=== PATIENT | female | born 1970 | race Two or more races ===

== ENCOUNTER 2025-05-02 14:27 | Inpatient (IN) | payer MEDICAID, OTHER ==
[~2025-05-02] VITALS: Ht 162.6 cm; Wt 96.7 kg
--- NOTE | 2025-05-02 15:05 | ED.PDOC ---
History of Present Illness HPI Comments 55-year-old female who is Bengali-speaking said the ER with prior history of gastritis: Surgical history of a : Prior procedure of an endoscopy and a chief complaint of abdominal pain. You reports having had epigastric pain for which has a 7/10 on the pain scale for one week associated with nausea and to emesis episodes last night. Denies any other symptoms at this time. Denies chills, fever, /D, SOB, CP. No other associated symptoms, modifiers, recent injuries or sick contacts present at this time. 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 Family History Family History: Reviewed,noncontributory to illness, Unknown Social History Smoker: Non-Smoker Alcohol: Denies ETOH Use Drugs: Denies Drug Use Lives In: Home Constitutional: denies: chills, diaphoresis, fatigue, fever, malaise, sweats, weakness, others EENTM: denies: blurred vision, double vision, ear bleeding, ear discharge, ear drainage, ear pain, ear ringing, eye pain, eye redness, hearing loss, mouth pain, mouth swelling, nasal discharge, nose bleeding, nose congestion, nose pain, photophobia, tearing, throat pain, throat swelling, voice changes, others Respiratory: denies: cough, hemoptysis, orthopnea, SOB at rest, shortness of breath, SOB with excertion, stridor, wheezing, others Cardiovascular: denies: chest pain, dizzy spells, diaphoresis, Dyspnea on exertion, edema, irregular heart beat, left arm pain, lightheadedness, palpitations, PND, syncope, others Gastrointestinal: reports: abdominal pain (Epigastric pain), nausea, vomiting; denies: abdomen distended, blood streaked bowels, constipated, diarrhea, dysphagia, difficulty swallowing, hematemesis, melena, poor appetite, poor fluid intake, rectal bleeding, rectal pain, others Genitourinary: denies: abnormal vagina bleeding, burning, dyspareunia, dysuria, flank pain, frequency, hematuria, incontinence, pain, , vagina discharge, urgency, others Neurological: denies: dizziness, fainting, headache, left sided numbness, left sided weakness, numbness, paresthesia, pre-existing deficit, right sided numbness, right sided weakness, seizure, speech problems, tingling, tremors, weakness, others Musculoskeletal: denies: back pain, gout, joint pain, joint swelling, muscle pain, muscle stiffness, neck pain, others Integumetry: denies: bruises, change in color, change in hair/nails, dryness, laceration, lesions, lumps, rash, wounds, others Allergic/Immunocompromised: denies: Difficulty Healing, Frequent Infections, Hives, Itching, others Hematologic/Lymphatic: denies: anemia, blood clots, easy bleeding, easy bruising, swollen glands, others Endocrine: denies: excessive hunger, excessive sweating, excessive thirst, excessive urination, flushing, intolerance to cold, intolerance to heat, unexplained weight gain, unexplained weight loss, others Psychiatric: denies: anxiety, bipolar disorder, depression, hopeless, panic disorder, schizophrenia, sleepless, suicidal, others All Other Systems: Reviewed and Negative Physical Exam Exam Comments Epigastric pain General Appearance: No Apparent Distress, Normal HEENT: Normal ENT Inspection, Pharynx Normal, TMs Normal Neck: Full Range of Motion, Non-Tender, Normal, Normal Inspection Respiratory: Chest Non-Tender, Lungs Clear, No Accessory Muscle Use, No Respiratory Distress, Normal Breath Sounds Cardiovascular: No Edema, No JVD, No Murmur, No Gallop, Normal Peripheral Pulses, Regular Rate/Rhythm Breast Exam: Deferred Gastrointestinal: No Organomegaly, Non Tender, No Pulsatile Mass, Normal Bowel Sounds, Soft Genitalia: Deferred Pelvic: Deferred Rectal: Deferred Extremities: No calf tenderness, Normal capillary refill, Normal inspection, Normal range of motion, Non-tender, No pedal edema Musculoskeletal : Apperance: Normal Neurologic: Alert, foster parent II-XII nml as Tested, No Motor Deficits, Normal Affect, Normal Mood, No Sensory Deficits Cerebellar Function: Normal Reflexes: Normal Skin: Dry, Normal Color, Warm Lymphatic: No Adenopathy Was a procedure done? Was a procedure done?: No Differential Dx Considerations may include: Electrolyte abnormality, infectious etiology, appendicitis, gastroenteritis, gastritis, cholecystitis, diverticulitis, fibroids, ureteral colic X-Ray, Labs, Meds, VS Vital Signs Date Time Temp Pulse Resp B/P (MAP) Pulse Ox O2 Delivery O2 Flow Rate FiO2 05/02/25 17:14 74 20 132/67 05/02/25 16:43 55 18 120/70 05/02/25 16:31 55 18 95 Room Air 05/02/25 16:22 98.0 55 18 120/70 (87) 95 98.0 05/02/25 15:17 05/02/25 15:05 103 05/02/25 14:38 60 05/02/25 14:29 98.8 67 20 127/75 96 98.8 Lab Test 05/02/25 15:10 05/02/25 14:00 Range/Units White Blood Count 5.8 4.4-10.8 10^3/uL Red Blood Count 4.48 4.0-5.20 10^6/uL Hemoglobin 13.2 12.2-16.2 g/dL Hematocrit 39.4 36.0-46.0 % Mean Corpuscular Volume 88.0 80.0-100.0 fL Mean Corpuscular Hemoglobin 29.5 28.0-32.0 pg Mean Corpuscular Hemoglobin Concent 33.5 32.0-36.0 g/dL Red Cell Distribution Width 12.8 11.8-14.3 % Platelet Count 196 140-450 10^3/uL Mean Platelet Volume 10.2 6.9-10.8 fL Neutrophils (%) (Auto) 56.2 37.0-80.0 % Lymphocytes (%) (Auto) 34.9 10.0-50.0 % Monocytes (%) (Auto) 6.1 0.0-12.0 % Eosinophils (%) (Auto) 2.1 0.0-7.0 % Basophils (%) (Auto) 0.7 0.0-2.0 % Neutrophils # (Auto) 3.3 1.6-8.6 10 ^3/uL Lymphocytes # (Auto) 2.0 0.4-5.4 10 ^3/uL Monocytes # (Auto) 0.4 0-1.3 10 ^3/uL Eosinophils # (Auto) 0.1 0-0.8 10 ^3/uL Basophils # (Auto) 0 0-0.2 10 ^3/uL Nucleated Red Blood Cells 0.1 % Sodium Level 142 136-145 mmol/L Potassium Level 4.2 3.5-5.1 mmol/L Chloride Level 105 98-107 mmol/L Carbon Dioxide Level 28 20-31 mmol/L Anion Gap 9 5-15 Blood Urea Nitrogen 11 9-23 mg/dL Creatinine 0.67 0.550-1.02 mg/dL Glomerular Filtration Rate Calc 103 >90 mL/min BUN/Creatinine Ratio 16.4 10.0-20.0 Serum Glucose 111 H 74-106 mg/dL Calcium Level 9.3 8.7-10.4 mg/dL Total Bilirubin 0.4 0.2-1.0 mg/dL Aspartate Amino Transferase (AST) 12 L 13-40 U/L Alanine Aminotransferase (ALT) 13 7-40 U/L Alkaline Phosphatase 79 46-116 U/L Total Protein 7.3 5.7-8.2 g/dL Albumin 4.5 3.2-4.8 g/dL Lipase 33 12-53 U/L Urine Color Light-yellow Yellow Urine Clarity Clear Clear Urine pH 5.0 5.0-9.0 Urine Specific [place] 1.011 1.001-1.035 Urine Protein Negative Negative Urine Ketones Negative Negative Urine Blood Negative Negative /uL Urine Nitrite Negative Negative Urine Bilirubin Negative Negative Urine Urobilinogen Normal Negative mg/dL Urine Leukocyte Esterase Negative Negative /uL Urine RBC 1 0 - 4 /hpf Urine Microscopic WBC < 1 0-5 /HPF Urine Squamous Epithelial Cells Few <5 /hpf Urine Bacteria None seen None Seen /hpf Urine Glucose Normal Normal mg/dL Current Medications Medications (Trade) Dose Ordered Sig/Storm Route Start Time Stop Time Status Last Admin Sodium Chloride 1,000 ml @ 1,000 mls/hr Q1H ONCE IV 05/02/25 15:30 05/02/25 16:29 DC 05/02/25 16:14 Morphine Sulfate 4 mg ONCE ONCE IV 05/02/25 15:30 05/02/25 15:34 DC 05/02/25 16:43 Ondansetron HCl (Zofran) 4 mg ONCE ONCE IV 05/02/25 15:30 05/02/25 15:34 DC 05/02/25 16:43 Pantoprazole Sodium (Protonix) 40 mg ONCE ONCE IV 05/02/25 15:30 05/02/25 15:34 DC 05/02/25 16:42 Time of 1ST Reevaluation: 15:40 Reevaluation 1ST: Unchanged Patient Education/Counseling: Diagnosis, Treatment, Prognosis Family Education/Counseling: No Family Present SEPSIS Sepsis Screen Date sepsis recognized/suspect: May 02, 2025 Time Sepsis recognized/suspect: 1431 Recent Procedure: No On Antibiotic Therapy: No Respiratory Rate >20: No Heart Rate >90: No Temp<36 C (96.8 F) or >38.3 C: No SBP <90 or MAP <65 mmHG: No New Acute Mental Status Change: No Is the patient on CPAP, BIPAP,: No Physician Orders Electrocardigram (05/02/25 14:42) Ct Ab Pel With Iv Con Only (05/02/25 15:30) Vital Signs Date Time Temp Pulse Resp B/P (MAP) Pulse Ox O2 Delivery O2 Flow Rate FiO2 05/02/25 17:14 74 20 132/67 05/02/25 16:43 55 18 120/70 05/02/25 16:31 55 18 95 Room Air 05/02/25 16:22 98.0 55 18 120/70 (87) 95 98.0 05/02/25 15:17 05/02/25 15:05 103 05/02/25 14:38 60 05/02/25 14:29 98.8 67 20 127/75 96 98.8 Laboratory Tests Test 05/02/25 15:10 White Blood Count 5.8 10^3/uL (4.4-10.8) Medications Medications Dose Ordered Sig/Storm Route Start Time Stop Time Status Last Admin Dose Admin Morphine Sulfate 4 mg ONCE ONCE IV 05/02/25 15:30 05/02/25 15:34 DC 05/02/25 16:43 Ondansetron HCl 4 mg ONCE ONCE IV 05/02/25 15:30 05/02/25 15:34 DC 05/02/25 16:43 Pantoprazole Sodium 40 mg ONCE ONCE IV 05/02/25 15:30 05/02/25 15:34 DC 05/02/25 16:42 Sodium Chloride 1,000 ml @ 1,000 mls/hr Q1H ONCE IV 05/02/25 15:30 05/02/25 16:29 DC 05/02/25 16:14 Departure 1 Departure Time of Disposition: 17:34 (Patient presented with abdominal pain that was concerning for possible appendicits, gastritis, cholecystitis, colitis, g astroenteritis, sbo, or orther possible surgical emergency. Data: 1. I ordered and reviewed the result of at least 3 labs including a CBC, BMP, and Urinalysis. 2. I independently interpreted the following tests: CT Abdomen and Pelvis is concerning for fibroids.Risk:This patient has a high risk of morbidity due to further diagnostic testing or treatment and may suffer from an acute abdominal process disorder. Workup reveals intractable abdominal pain and fibroids and patient should be admitted for further workup. and possible expert consultation. ) Impression: Primary Impression: Intractable abdominal pain Additional Impressions: Fibroids Nausea and vomiting Disposition: ADMITTED INPATIENT Admit to: Med Surg Condition: Guarded Critical Care Note Critical Care Time?: Yes Critical care comment: Intractable abdominal pain Authorized and Performed by: Kassandra Dyer MD Total critical care time: Approximately 39 minutes Due to a high probability of clinically significant, life threatening deterioration, the patient required my highest level of preparedness to intervene emergently and I personally spent this critical care time directly and personally managing the patient. This critical care time included obtaining a history; examining the patient; pulse oximetry; ordering and review of studies; arranging urgent treatment with development of a management plan; evaluation of patient's response to treatment; frequent reassessment; and, discussions with other providers. This critical care time was performed to assess and manage the high probability of imminent, life-threatening deterioration that could result in multi-organ failure. It was exclusive of separately billable procedures and treating other patients and teaching time. Please see my other sections and the rest of the note for further information on patient assessment and treatment. Stability Stability form required: No I personally scribed for KASSANDRA DYER MD ([email or web address]) on 05/02/25 at 15:05. Electronically submitted by Chidi Swartz ([email or web address]). I personally scribed for KASSANDRA DYER MD ([email or web address]) on 05/02/25 at 15:17. Electronically submitted by Chidi Swartz ([email or web address]). KASSANDRA DYER MD May 02, 2025 15:05
[2025-05-02 15:22] LABS: Hematocrit 39.4 % (36.0-46.0); Hemoglobin 13.2 g/dL (12.2-16.2); Mean Corpuscular Hemoglobin 29.5 pg (28.0-32.0); Mean Corpuscular Volume 88.0 fL (80.0-100.0); Nucleated Red Blood Cells % 0.1 %
[2025-05-02 15:35] LABS: Alanine Aminotransferase 13 U/L (7-40); Albumin 4.5 g/dL (3.2-4.8); Alkaline Phosphatase 79 U/L (46-116); Anion Gap 9 (5-15); BUN/Creatinine Ratio 16.4 (10.0-20.0); Blood Urea Nitrogen 11 mg/dL (9-23); Calcium 9.3 mg/dL (8.7-10.4); Carbon Dioxide 28 mmol/L (20-31); Chloride 105 mmol/L (98-107); Lipase 33 U/L (12-53); Potassium 4.2 mmol/L (3.5-5.1); Sodium 142 mmol/L (136-145); Total Protein 7.3 g/dL (5.7-8.2)
[2025-05-02 15:36] LABS: Bilirubin, Total 0.4 mg/dL (0.2-1.0)
[2025-05-02 15:43] LABS: Glucose 111 mg/dL (74-106)
[2025-05-02] MEDS: SODIUM CHLORIDE 0.9% 1,000 ML IV ONE (16:14)
[2025-05-02 16:35] LABS: Urine Protein, UAD Negative (Negative)
[2025-05-02] MEDS: IOHEXOL 300 MG/ML 100ML BOTTLE IJ ONE (16:35)
[2025-05-02] MEDS: PANTOPRAZOLE 40 MG/10 ML VIAL INJ IV ONE (16:42)
[2025-05-02] MEDS: MORPHINE SULFATE 4 MG/ML SYR/VIAL IV ONE (16:43)
[2025-05-02] MEDS: ONDANSETRON HCL 4 MG/2 ML VIAL IV ONE (16:43)
--- NOTE | 2025-05-02 17:08 | DVH ---
Exam: CT CT AB PEL WITH IV CON ONLY History: intractable abdominal pain COMPARISON: None Technique: Multidetector spiral CT of the abdomen and pelvis was performed from lung bases to pubic symphysis. Intravenous contrast was administered during this examination. Portal venous imaging was obtained. Axial, coronal and sagittal multiplanar reformats were performed by the technologist on a separate workstation. Radiation Dose : 1. Abdomen/Pelvis: CTDIvol 25.07mGy, DLP 1202.85 mGy*cm. Findings: Lung Bases: No acute or significant lung base finding. Normal heart size. No pleural or pericardial effusion. Liver: The liver is normal in size. No focal lesions. Normal hepatic vascular enhancement. Gallbladder and Biliary Tree: Unremarkable Spleen: Unremarkable Pancreas: The pancreas is normal in appearance without focal lesions or abnormal enhancement. Adrenal Glands: Unremarkable Kidneys: Unremarkable. Bladder: Unremarkable Bowel: No acute bowel abnormality. Mild sigmoid diverticulosis. No diverticulitis. Normal appendix. Ascites: Absent Lymphadenopathy: No lymphadenopathy. Abdominal Wall and Mesentery: Unremarkable. Vasculature: The visualized abdominal aorta is normal in size and caliber. Abdominal and pelvic vessels demonstrate normal enhancement. Pelvic Organs: Fibroid uterus. Musculoskeletal: No aggressive focal bony lesions, acute fractures or dislocation. IMPRESSION: Fibroid uterus Mild sigmoid diverticulosis. No diverticulitis Radiation optimization: All CT scans at this facility use at least one of these dose optimization techniques: automated exposure control mA and/or kV adjustment per patient size (includes targeted exams where dose is matched to clinical indication) or iterative reconstruction.
[2025-05-02] MEDS ORDERED: MORPHINE SULFATE INJ 2 MG/ml SYRG IV PRN (21:00)
[2025-05-02] MEDS ORDERED: SODIUM CHLORIDE 0.9% 1,000 ML IV SCH (21:00)
--- NOTE | 2025-05-02 21:04 | DVHHP2 ---
History of Present Illness History of Present Illness Patient is 55 years old female with a past medical history of gastritis, anxiety came with a complaint of abdominal pain. As per patient she has been having epigastric abdominal pain started 1 week before, gradual onset, 7/10, intermittent, crampy in nature, no radiation, increased with eating food. Patient also reported nausea and nonbloody vomiting 2 times today. Patient also reported constipation for last 1 week. Patient reported she had endoscopy done 2 years before which revealed gastritis and she was taking pantoprazole because of the at. Patient denied any fever, dysuria, chest pain or shortness of breath, leg swelling or rash. Initial lab workup revealed CBC with a normal limit lipase 33. CT abdomen revealed mild diverticulosis, no diverticulitis. PMH-gastritis PSH- x2 Family history-mother diabetes Allergy- NKDA Personal History/ Social History- denies smoking/occasional alcoholism on holidays, denies using substances, lives with sister. Review of Systems Review of Systems Cardiovascular- deny acute chest pain or shortness of breath or cough or palpitation Respiratory denies cough or short of breath or wheezing Musculoskeletal-denies acute joint swelling or tenderness or redness Neurological- denies acute dysarthria, dysphagia, change in vision Psychiatry- denies depression or SI or HI Skin- denies acute rash or purpura Allergies: Coded Allergies: NO KNOWN ALLERGIES (Unverified , 05/02/25) Medications Current Medications Medications Dose Ordered Sig/Storm Route Start Time Stop Time Status Last Admin Dose Admin Sodium Chloride 1,000 ml @ 60 mls/hr [id number] IV 05/02/25 21:00 UNV Sodium Chloride 1,000 ml @ 120 mls/hr Q8H20M IV 05/02/25 21:00 UNV Acetaminophen 650 mg Q6HP PRN PO 05/02/25 21:00 UNV Morphine Sulfate 2 mg Q4HPRN PRN IV 05/02/25 21:00 UNV Pantoprazole Sodium 40 mg BID IV 05/02/25 21:00 UNV Sucralfate 1 gm QIDACHS PO 05/02/25 21:00 UNV Exam Vital Signs Vital Signs Date Time Temp Pulse Resp B/P (MAP) Pulse Ox O2 Delivery O2 Flow Rate FiO2 05/02/25 17:14 74 20 132/67 05/02/25 16:31 95 Room Air 11/15/25 16:22 98.0 98.0 Exam General examination- awake, alert, oriented HEENT- PEERLA, no acute nasal discharge Cardiovascular- S1-S2 audible, rate and rhythm regular, no murmur Respiratory- CTAB, no wheeze or rhonchi Gastrointestinal-epigastric tenderness++, bowel sound+. Nondistended Musculoskeletal-no acute joint swelling or tenderness or redness Lower extremity- no leg edema Neurological- cranial nerves intact, no acute dysarthria or dysphagia Psychiatry- denies depression or SI or HI Skin- no acute rash or purpura Labs/Xrays Labs Test 05/02/25 15:10 05/02/25 14:00 Range/Units White Blood Count 5.8 4.4-10.8 10^3/uL Red Blood Count 4.48 4.0-5.20 10^6/uL Hemoglobin 13.2 12.2-16.2 g/dL Hematocrit 39.4 36.0-46.0 % Mean Corpuscular Volume 88.0 80.0-100.0 fL Mean Corpuscular Hemoglobin 29.5 28.0-32.0 pg Mean Corpuscular Hemoglobin Concent 33.5 32.0-36.0 g/dL Red Cell Distribution Width 12.8 11.8-14.3 % Platelet Count 196 140-450 10^3/uL Mean Platelet Volume 10.2 6.9-10.8 fL Neutrophils (%) (Auto) 56.2 37.0-80.0 % Lymphocytes (%) (Auto) 34.9 10.0-50.0 % Monocytes (%) (Auto) 6.1 0.0-12.0 % Eosinophils (%) (Auto) 2.1 0.0-7.0 % Basophils (%) (Auto) 0.7 0.0-2.0 % Neutrophils # (Auto) 3.3 1.6-8.6 10 ^3/uL Lymphocytes # (Auto) 2.0 0.4-5.4 10 ^3/uL Monocytes # (Auto) 0.4 0-1.3 10 ^3/uL Eosinophils # (Auto) 0.1 0-0.8 10 ^3/uL Basophils # (Auto) 0 0-0.2 10 ^3/uL Nucleated Red Blood Cells 0.1 % Sodium Level 142 136-145 mmol/L Potassium Level 4.2 3.5-5.1 mmol/L Chloride Level 105 98-107 mmol/L Carbon Dioxide Level 28 20-31 mmol/L Anion Gap 9 5-15 Blood Urea Nitrogen 11 9-23 mg/dL Creatinine 0.67 0.550-1.02 mg/dL Glomerular Filtration Rate Calc 103 >90 mL/min BUN/Creatinine Ratio 16.4 10.0-20.0 Serum Glucose 111 H 74-106 mg/dL Calcium Level 9.3 8.7-10.4 mg/dL Total Bilirubin 0.4 0.2-1.0 mg/dL Aspartate Amino Transferase (AST) 12 L 13-40 U/L Alanine Aminotransferase (ALT) 13 7-40 U/L Alkaline Phosphatase 79 46-116 U/L Total Protein 7.3 5.7-8.2 g/dL Albumin 4.5 3.2-4.8 g/dL Lipase 33 12-53 U/L Urine Color Light-yellow Yellow Urine Clarity Clear Clear Urine pH 5.0 5.0-9.0 Urine Specific [place] 1.011 1.001-1.035 Urine Protein Negative Negative Urine Ketones Negative Negative Urine Blood Negative Negative /uL Urine Nitrite Negative Negative Urine Bilirubin Negative Negative Urine Urobilinogen Normal Negative mg/dL Urine Leukocyte Esterase Negative Negative /uL Urine RBC 1 0 - 4 /hpf Urine Microscopic WBC < 1 0-5 /HPF Urine Squamous Epithelial Cells Few <5 /hpf Urine Bacteria None seen None Seen /hpf Urine Glucose Normal Normal mg/dL SEPSIS Sepsis Screen Date sepsis recognized/suspect: May 02, 2025 Time Sepsis recognized/suspect: 1432 Recent Procedure: No On Antibiotic Therapy: No Respiratory Rate >20: No Heart Rate >90: No Temp<36 C (96.8 F) or >38.3 C: No SBP <90 or MAP <65 mmHG: No New Acute Mental Status Change: No Is the patient on CPAP, BIPAP,: No Physician Orders Electrocardigram (05/02/25 14:42) Ct Ab Pel With Iv Con Only (05/02/25 15:30) Admit (05/02/25 20:57) Sodium Chloride 0.9% (05/02/25 21:00) Sodium Chloride 0.9% (05/02/25 21:00) Complete Blood Count (05/03/25 04:00) Comprehensive Metabolic Panel (05/03/25 04:00) Acetaminophen Tablet (Tylenol Tablet) (05/02/25 21:00) Clear Liq Diet (05/03/25 Breakfast) Morphine Sulfate Injection (05/02/25 21:00) Notify Of Changes From Base (05/02/25 20:57) Electrocardigram (05/02/25 20:57) Pantoprazole (Protonix) (05/02/25 21:00) Sucralfate Tab (Carafate Tab) (05/02/25 21:00) Vital Signs Date Time Temp Pulse Resp B/P (MAP) Pulse Ox O2 Delivery O2 Flow Rate FiO2 05/02/25 17:14 74 20 132/67 05/02/25 16:43 55 18 120/70 05/02/25 16:31 55 18 95 Room Air 05/02/25 16:22 98.0 55 18 120/70 (87) 95 98.0 05/02/25 15:17 05/02/25 15:05 103 05/02/25 14:38 60 05/02/25 14:29 98.8 67 20 127/75 96 98.8 Laboratory Tests Test 05/02/25 15:10 White Blood Count 5.8 10^3/uL (4.4-10.8) Medications Medications Dose Ordered Sig/Storm Route Start Time Stop Time Status Last Admin Dose Admin Morphine Sulfate 4 mg ONCE ONCE IV 05/02/25 15:30 05/02/25 15:34 DC 05/02/25 16:43 4 MG Ondansetron HCl 4 mg ONCE ONCE IV 05/02/25 15:30 05/02/25 15:34 DC 05/02/25 16:43 4 MG Pantoprazole Sodium 40 mg ONCE ONCE IV 05/02/25 15:30 05/02/25 15:34 DC 05/02/25 16:42 40 MG Sodium Chloride 1,000 ml @ 1,000 mls/hr Q1H ONCE IV 05/02/25 15:30 05/02/25 16:29 DC 05/02/25 16:14 1,000 MLS/HR Assessment/Plan Assessment/Plan Assessment and plan # acute gastroenteritis, rule out acute pancreatitis/diverticuli tis/cholecystitis # suspected gastritis # intractable nausea and vomiting likely due to above -lipase with a normal limit -CT abdomen-mild sigmoid diverticulosis, no diverticulitis -continue pantoprazole 40 mg IV b.i.d. -sucralfate 1 g p.o. q.6h -continue IV fluid normal saline as prescribed # constipation -Colace 100 mg p.o. b.i.d. # sigmoid diverticulosis -avoid dehydration and constipation # obesity, BMI 37 -patient was counseled about the effect of obesity on health Diet-clear liquid diet PCP-patient reported she does not have a PCP, she goes to clinic in case Goals of care, Code status full code ; discussed with >15 minutes PUD prophylaxis: Pantoprazole DVT prophylaxis: Lovenox Plan discussed with Dr Thrasher, nursing staff, Total time spent on patient evaluation, chart review, assessment and plan, discussion discussion >35 minutes Plan discussed with: Patient, Other (RN) My Orders Orders - GAGANDEEP CARBAJAL Procedure Category Date Status Time Admit ADMIT 05/02/25 Transmitted 20:57 Sodium Chloride 0.9% PHA 05/02/25 In Process 21:00 Sodium Chloride 0.9% PHA 05/02/25 Logged 21:00 Complete Blood Count LAB 05/03/25 Verified 04:00 Comprehensive LAB 05/03/25 Verified Metabolic Panel 04:00 Acetaminophen Tablet PHA 05/02/25 Logged (Tylenol Tablet) 21:00 Clear Liq Diet DIET 05/03/25 Transmitted Breakfast Morphine Sulfate PHA 05/02/25 Logged Injection 21:00 Notify Md Of Changes VAMSHI 05/02/25 In Process From Base 20:57 Electrocardigram EKG 05/02/25 Logged 20:57 Pantoprazole PHA 05/02/25 Logged (Protonix) 21:00 Sucralfate Tab PHA 05/02/25 Logged (Carafate Tab) 21:00 Date of Service: May 02, 2025 Billing Provider: VANESSA THRASHER MD Common Visit Codes: 70797-KTMVZTU INP/OBS CARE (HIGH) Secondary Visit Codes: 38160-[id number] CARE PLAN 30 MINUTES GAGANDEEP CARBAJAL May 02, 2025 21:04
[2025-05-02 21:29] LABS: Magnesium 2.2 mg/dL (1.6-2.6)
[2025-05-02 21:42] VITALS: PULSE 57; RESP 20; O2SAT 97
[2025-05-02] MEDS ORDERED: MAALOX PLUS or MAALOX 30 ML PO PRN (22:00)
[2025-05-02] MEDS: PANTOPRAZOLE 40 MG/10 ML VIAL INJ IV SCH (22:00)
[2025-05-02] MEDS: SUCRALFATE 1 GM TAB PO SCH (22:00)
[2025-05-02] MEDS: MAALOX PLUS or MAALOX 30 ML PO ONE (22:05)
[2025-05-02] MEDS: ENOXAPARIN SOD 40 MG/0.4 ML SYRINGE SC SCH (22:05)
[2025-05-02 23:20] VITALS: BP 150/79; PULSE 50; RESP 18; TEMP 98.6; O2SAT 95
[2025-05-02] MEDS: SODIUM CHLORIDE 0.9% 1,000 ML IV SCH (23:53)
[2025-05-03] VITALS (11 sets, daily range): BP systolic 124–150; BP diastolic 71–88; PULSE 45–59; RESP 14–18; TEMP 97.7–98.6; O2SAT 93–97
[2025-05-03] MEDS ORDERED: OMEP20TA PO (00:43)
[2025-05-03] MEDS ORDERED: SERT-289 PO (00:43)
[2025-05-03] MEDS: ACETAMINOPHEN 325 MG TAB PO PRN (04:22)
[2025-05-03] MEDS: SERTRALINE HCL 50 MG TAB PO SCH (10:48)
[2025-05-03] MEDS: HYDROcodone-ACET 5/325MG TAB PO PRN (10:52)
[2025-05-03 11:37] LABS: Hematocrit 38.2 % (36.0-46.0); Hemoglobin 12.9 g/dL (12.2-16.2); Mean Corpuscular Hemoglobin 29.5 pg (28.0-32.0); Mean Corpuscular Volume 87.1 fL (80.0-100.0); Nucleated Red Blood Cells % 0.0 %
[2025-05-03 11:49] LABS: Alanine Aminotransferase 15 U/L (7-40); Albumin 4.2 g/dL (3.2-4.8); Alkaline Phosphatase 76 U/L (46-116); Anion Gap 8 (5-15); BUN/Creatinine Ratio 11.9 (10.0-20.0); Bilirubin, Total 0.6 mg/dL (0.2-1.0); Calcium 9.0 mg/dL (8.7-10.4); Carbon Dioxide 29 mmol/L (20-31); Chloride 105 mmol/L (98-107); Glucose 94 mg/dL (74-106); Potassium 4.1 mmol/L (3.5-5.1); Sodium 142 mmol/L (136-145); Total Protein 6.8 g/dL (5.7-8.2)
[2025-05-03 11:50] LABS: Blood Urea Nitrogen 7 mg/dL (9-23)
--- NOTE | 2025-05-03 12:02 | DVHPNRES ---
Progress Note Date Seen: May 03, 2025 Resident Creating Document: TANISHA VELASQUEZ RESIDENT Medical Necessity Reason Pt with a Central, PICC or Fol: No Subjective Review of Systems Brief history on arrival: This is a 55-year-old female with past medical history of gastritis, presented to the ER with chief complain of epigastric abdominal pain since 1 week. Pain is described as cramp like, has been progressively worse, rating 5/10, worsens with eating food; nonradiating, no relieving factors. She also reported nausea and vomiting yesterday, 2 episodes of vomiting with food contents, no hematemesis. She was unable to put anything down. Patient also reported constipation for last 1 week. Patient reported she had endoscopy done 2 years before which revealed gastritis, managed with pantoprazole. She denies recent travel, eating from food truck, raw seafood consumption. Patient denied any fever, dysuria, chest pain or shortness of breath. PMHx: Gastritis PSHx: 2 sections Family history: Diabetes mellitus (mother) Social history: Denies smoking, alcohol, recreational drug use. Lives in house with sister. Full code. Home medication: No medication use at home Allergic history: No known allergies ROS: Constitutional: Denies weight loss, fever and chills. HEENT: Denies changes in vision and hearing. Respiratory: Denies shortness of breath and cough Cardiovascular: Denies chest discomfort or palpitations GI: Epigastric abdominal pain, nausea, vomiting, constipation. : Denies dysuria and urinary frequency. Musculoskeletal: Denies myalgias and joint pain Skin: Denies rash and pruritus. Neurological: Denies dizziness, headache, vision or hearing problems 05/03/2025: Patient was seen at bedside today. Patient is complaining of pressure-like headache. We will continue evaluating and managing. Objective vital signs Vital Sign Date Time Temp Pulse Resp B/P (MAP) Pulse Ox O2 Delivery O2 Flow Rate FiO2 05/03/25 09:24 98.4 59 16 124/71 (88) 95 98.4 05/03/25 00:00 Room Air* 0 21 Total Intake and Output 05/02/25 05/02/25 05/03/25 15:00 23:00 07:00 Intake Total 1000 ml 800 ml Balance 1000 ml 800 ml medications Current Medications Medications Dose Ordered Sig/Storm Route Start Time Stop Time Status Last Admin Dose Admin Sodium Chloride 1,000 ml @ 120 mls/hr Q8H20M IV 05/02/25 21:00 05/03/25 05:38 120 MLS/HR Acetaminophen 650 mg Q6HP PRN PO 05/02/25 21:00 05/03/25 04:22 650 MG Morphine Sulfate 2 mg Q4HPRN PRN IV 05/02/25 21:00 Pantoprazole Sodium 40 mg BID IV 05/02/25 21:00 05/03/25 10:47 40 MG Sucralfate 1 gm QIDACHS PO 05/02/25 21:00 05/03/25 10:47 1 GM Enoxaparin Sodium 40 mg DAILY SC 05/02/25 21:15 05/03/25 10:48 40 MG Al Hydrox/Mg Hydrox/Simethicone 15 ml Q8HP PRN PO 05/02/25 22:00 Sertraline HCl 50 mg DAILY PO 05/03/25 10:00 05/03/25 10:48 50 MG Acetaminophen/ Hydrocodone Bitart 1 tab Q6HPRN PRN PO 05/03/25 10:30 05/03/25 10:52 1 TAB Examination General: Patient alert and oriented in person, place and time. Patient following commands. HEENT: Normocephalic, atraumatic, dry mucous membranes Respiratory/pulmonary: Clear lungs bilaterally, vesicular murmurs present in almost all lung cloud, no associated crackles or wheezes. Cardiovascular: Normal heart sounds S1 and S2 with no associated murmurs Abdomen: Abdominal tenderness on palpation of epigastric area. No guarding rigidity, no palpable masses. Extremities: There is no peripheral edema present at the lower extremities. Peripheral Pulses: 3+ Radial (R). 3+ Radial (L). 3+ Dorsalis pedis (R). 3+ Dorsalis pedis(L) Skin: No rashes or pruritus, there is no sacral edema present at this time. Neurological: Intact cranial nerves with no focal neurologic deficits laboratory and microbiology Laboratory Tests 05/03/25 10:50 Test 05/03/25 10:50 Range/Units Serum Glucose Pending Problem List/Assessment/Plan Problem List/Assessment/Plan Acute gastroenteritis Acute gastritis Intractable abdominal pain, vomiting due to above Diverticulosis without diverticulitis Ruled out acute pancreatitis Ruled out acute cholecystitis Constipation CT abdomen shows mild diverticulosis without diverticulitis, fibroid uterus Supportive management with IV fluids, [place], pain management, docusate Continue Protonix, Maalox, sucralfate Clear liquid diet; Advance diet as tolerated Evaluate for GI consult if patient continues to complain of abdominal pain Obesity class 2 BMI 37 Counseled on lifestyle and diet DIET: Clear liquid DVT PROPHYLAXIS: Lovenox GI PROPHYLAXIS: Protonix CODE STATUS: Goals of care discussed with patient at bedside for more than 28 minutes. Full code DISPOSITION: Med/surge This medical document was created using an electronic medical record system with [email or web address] direct computerized dictation system. Although this document has been carefully reviewed, there may still be some phonetic and typographical errors. These areas are purely typographical due to imperfections of the software programs, and do not reflect any compromise in the patient's medical care. Patient's status and plan discussed with the patient. Case discussed with Dr. Schmitt Plan discussed with: Patient, Other (Nurses) My Orders My Orders Orders - TANISHA VELASQUEZ RESIDENT Procedure Category Date Status Time Basic Metabolic Panel LAB 05/04/25 Verified 04:00 Date of Service: May 03, 2025 Billing Provider: LITZY SCHMITT MD Common Visit Codes: 44220-[id number] INP/OBS CARE(HIGH) TANISHA VELASQUEZ May 03, 2025 12:02 LITZY SCHMITT MD May 04, 2025 10:11
[2025-05-04] VITALS (7 sets, daily range): BP systolic 122–144; BP diastolic 68–87; PULSE 51–63; RESP 16–18; TEMP 36.8; O2SAT 95–99
[2025-05-04 06:50] LABS: Chloride 104 mmol/L (98-107); Potassium 3.8 mmol/L (3.5-5.1); Sodium 141 mmol/L (136-145)
[2025-05-04 06:51] LABS: Anion Gap 8 (5-15); Carbon Dioxide 29 mmol/L (20-31)
[2025-05-04 06:52] LABS: Calcium 9.1 mg/dL (8.7-10.4)
[2025-05-04 06:57] LABS: BUN/Creatinine Ratio 13.1 (10.0-20.0); Glucose 92 mg/dL (74-106)
[2025-05-04 06:58] LABS: Blood Urea Nitrogen 8 mg/dL (9-23)
--- NOTE | 2025-05-04 07:20 | ECG ---
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
--- NOTE | 2025-05-04 09:03 | ECG ---
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
[2025-05-04 13:25] LABS: Amphetamine Screen, Urine Neg (NEGATIVE); Barbiturate Scree,Urine Neg (NEGATIVE); Benzodiazephine Screen, Urine Neg (NEGATIVE); Cannabinoid Screen, Urine Neg (NEGATIVE); Cocaine Screen, Urine Neg (NEGATIVE); Opiate Scree,Urine Neg (NEGATIVE); Phencyclidine Screen, Urine Neg (NEGATIVE)
--- NOTE | 2025-05-04 13:29 | DVHPNRES ---
Progress Note Date Seen: May 04, 2025 Resident Creating Document: GUILHERME DIAMOND RESIDENT Medical Necessity Reason Pt with a Central, PICC or Fol: No Subjective Review of Systems This is a 55-year-old female with past medical history of gastritis, presented to the ER with chief complain of epigastric abdominal pain since 1 week. Pain is described as cramp like, has been progressively worse, rating 5/10, worsens with eating food; nonradiating, no relieving factors. She also reported nausea and vomiting yesterday, 2 episodes of vomiting with food contents, no hematemesis. She was unable to put anything down. Patient also reported constipation for last 1 week. Patient reported she had endoscopy done 2 years before which revealed gastritis, managed with pantoprazole. She denies recent travel, eating from food truck, raw seafood consumption. Patient denied any fever, dysuria, chest pain or shortness of breath. PMHx: Gastritis PSHx: 2 sections Family history: Diabetes mellitus (mother) Social history: Denies smoking, alcohol, recreational drug use. Lives in house with sister. Full code. Home medication: No medication use at home Allergic history: No known allergies 05/03/2025: Patient was seen at bedside today. Patient is complaining of pressure-like headache. We will continue evaluating and managing. 05/04/2025: Patient seen at bedside. Patient today is complaining of pressure- like chest pain which is 6/10 in intensity, constant, increased when coughing but non radiating. Cardiology was consulted, echo ordered, BNP normal tropes negative. Patient did not complain of any abdominal pain. Last bowel movement was 2 days ago. Objective vital signs Vital Sign Date Time Temp Pulse Resp B/P (MAP) Pulse Ox O2 Delivery O2 Flow Rate FiO2 05/04/25 09:00 98.1 63 16 143/87 (105) 96 98.1 05/04/25 08:00 Room Air* 0 21 Total Intake and Output 05/03/25 05/03/25 05/04/25 15:00 23:00 07:00 Intake Total 900 ml 1350 ml Balance 900 ml 1350 ml medications Current Medications Medications Dose Ordered Sig/Storm Route Start Time Stop Time Status Last Admin Dose Admin Sodium Chloride 1,000 ml @ 120 mls/hr Q8H20M IV 05/02/25 21:00 05/04/25 03:30 120 MLS/HR Acetaminophen 650 mg Q6HP PRN PO 05/02/25 21:00 05/03/25 04:22 650 MG Morphine Sulfate 2 mg Q4HPRN PRN IV 05/02/25 21:00 Pantoprazole Sodium 40 mg BID IV 05/02/25 21:00 05/04/25 09:08 40 MG Sucralfate 1 gm QIDACHS PO 05/02/25 21:00 05/04/25 11:22 1 GM Enoxaparin Sodium 40 mg DAILY SC 05/02/25 21:15 05/04/25 09:07 40 MG Al Hydrox/Mg Hydrox/Simethicone 15 ml Q8HP PRN PO 05/02/25 22:00 Sertraline HCl 50 mg DAILY PO 05/03/25 10:00 05/04/25 09:07 50 MG Acetaminophen/ Hydrocodone Bitart 1 tab Q6HPRN PRN PO 05/03/25 10:30 05/03/25 18:42 1 TAB Examination General: Patient alert and oriented in person, place and time. Patient following commands. HEENT: Normocephalic, atraumatic, dry mucous membranes Respiratory/pulmonary: Clear lungs bilaterally, vesicular murmurs present in almost all lung cloud, no associated crackles or wheezes. Cardiovascular: Normal heart sounds S1 and S2 with no associated murmurs, Pressure-like chest pain Abdomen: Abdominal tenderness on palpation of epigastric area. No guarding rigidity, no palpable masses. Extremities: There is no peripheral edema present at the lower extremities. Peripheral Pulses: 3+ Radial (R). 3+ Radial (L). 3+ Dorsalis pedis (R). 3+ Dorsalis pedis(L) Skin: No rashes or pruritus, there is no sacral edema present at this time. Neurological: Intact cranial nerves with no focal neurologic deficits laboratory and microbiology Laboratory Tests 05/04/25 06:07 05/03/25 10:50 Test 05/04/25 06:07 Range/Units Serum Glucose 92 74-106 mg/dL Problem List/Assessment/Plan Problem List/Assessment/Plan Acute gastroenteritis Acute gastritis Intractable abdominal pain, vomiting due to above Diverticulosis without diverticulitis Ruled out acute pancreatitis Ruled out acute cholecystitis Constipation CT abdomen shows mild diverticulosis without diverticulitis, fibroid uterus Supportive management with IV fluids, [place], pain management, docusate Continue Protonix, Maalox, sucralfate Clear liquid diet; Advance diet as tolerated Evaluate for GI consult if patient continues to complain of abdominal pain Intractable chest pain - consulted cardiology -ordered echo, pending -BNP normal - tropes negative - EKG shows bradycardia with no ST changes Obesity class 2 BMI 37 Counseled on lifestyle and diet greater than 18 minutes DIET: Clear liquid? Advance diet DVT PROPHYLAXIS: Lovenox GI PROPHYLAXIS: Protonix CODE STATUS: Goals of care discussed with patient at bedside for more than 28 minutes. Full code DISPOSITION: Med/surge Patient's status and plan discussed with the patient. Case discussed with Plan discussed with: Patient, Daughter My Orders My Orders Orders - GUILHERME DIAMOND Procedure Category Date Status Time Electrocardigram EKG 05/04/25 Logged 10:08 * Cardiology Consult CONS 05/04/25 Transmitted 13:15 Echo 2d Mode Cardiac US 05/04/25 Logged DOP 13:19 Complete Blood Count LAB 05/05/25 Verified 04:00 Basic Metabolic Panel LAB 05/05/25 Verified 04:00 Chest Xray 1 View XY 05/04/25 Logged 13:22 GUILHERME DIAMOND May 04, 2025 13:29 LITZY HIGGINS MD May 04, 2025 22:28
--- NOTE | 2025-05-04 14:12 | DVH ---
CHEST RADIOGRAPH Indication: chest pain Technique: Single frontal view of the chest was obtained Comparison: None FINDINGS: Lines and Tubes: None Lungs: No focal consolidation. Pleura: No effusion. No pneumothorax. Cardiomediastinal contours: Unremarkable Bones: No acute osseous abnormality. IMPRESSION: 1. No acute cardiopulmonary disease.
[2025-05-04] MEDS ORDERED: PANT40T PO (16:22)
--- NOTE | 2025-05-04 18:29 | DVHDSRES ---
Discharge Summary Date of Admission Resident Creating Document: GUILHERME DIAMOND May 02, 2025 at 20:57 Date of Discharge: May 04, 2025 Admitting Diagnosis Acute gastroenteritis Labs/Diagnostic Data: Laboratory Results Test 05/04/25 16:38 05/04/25 10:50 05/04/25 06:07 05/03/25 10:50 Troponin I High Sensitivity 9 ng/L (</=34) Urine Opiates Screen Neg (NEGATIVE) Urine Fentanyl Screen Neg (NEGATIVE) Urine Barbiturates Screen Neg (NEGATIVE) Urine Phencyclidine Screen Neg (NEGATIVE) Urine Amphetamines Screen Neg (NEGATIVE) Urine Benzodiazepines Screen Neg (NEGATIVE) Urine Cocaine Screen Neg (NEGATIVE) Urine Cannabinoids Screen Neg (NEGATIVE) Sodium Level 141 mmol/L (136-145) Potassium Level 3.8 mmol/L (3.5-5.1) Chloride Level 104 mmol/L (98-107) Carbon Dioxide Level 29 mmol/L (20-31) Anion Gap 8 (5-15) Blood Urea Nitrogen 8 mg/dL (9-23) Creatinine 0.61 mg/dL (0.550-1.02) Glomerular Filtration Rate Calc 106 mL/min (>90) BUN/Creatinine Ratio 13.1 (10.0-20.0) Serum Glucose 92 mg/dL (74-106) Calcium Level 9.1 mg/dL (8.7-10.4) B-Type Natriuretic Peptide 62.27 pg/mL (0-100) White Blood Count 6.0 10^3/uL (4.4-10.8) Red Blood Count 4.38 10^6/uL (4.0-5.20) Hemoglobin 12.9 g/dL (12.2-16.2) Hematocrit 38.2 % (36.0-46.0) Mean Corpuscular Volume 87.1 fL (80.0-100.0) Mean Corpuscular Hemoglobin 29.5 pg (28.0-32.0) Mean Corpuscular Hemoglobin Concent 33.8 g/dL (32.0-36.0) Red Cell Distribution Width 12.8 % (11.8-14.3) Platelet Count 179 10^3/uL (140-450) Mean Platelet Volume 10.4 fL (6.9-10.8) Neutrophils (%) (Auto) 62.0 % (37.0-80.0) Lymphocytes (%) (Auto) 30.2 % (10.0-50.0) Monocytes (%) (Auto) 5.6 % (0.0-12.0) Eosinophils (%) (Auto) 1.7 % (0.0-7.0) Basophils (%) (Auto) 0.5 % (0.0-2.0) Neutrophils # (Auto) 3.7 10 ^3/uL (1.6-8.6) Lymphocytes # (Auto) 1.8 10 ^3/uL (0.4-5.4) Monocytes # (Auto) 0.3 10 ^3/uL (0-1.3) Eosinophils # (Auto) 0.1 10 ^3/uL (0-0.8) Basophils # (Auto) 0 10 ^3/uL (0-0.2) Nucleated Red Blood Cells 0.0 % Total Bilirubin 0.6 mg/dL (0.2-1.0) Aspartate Amino Transferase (AST) 13 U/L (13-40) Alanine Aminotransferase (ALT) 15 U/L (7-40) Alkaline Phosphatase 76 U/L (46-116) Total Protein 6.8 g/dL (5.7-8.2) Albumin 4.2 g/dL (3.2-4.8) Test 05/02/25 21:55 05/02/25 15:10 05/02/25 14:00 Hemoglobin A1c 5.7 % A1C (<5.7) Magnesium Level 2.2 mg/dL (1.6-2.6) Vitamin B12 Level 497 pg/mL (211-911) Vitamin D 25-Hydroxy 49.3 ng/mL (30.0-100) Folic Acid 17.48 ng/mL (>5.38) Lipase 33 U/L (12-53) Thyroid Stimulating Hormone (TSH) 1.54 uIU/mL (0.55-4.78) Plasma/Serum Blood Alcohol < 3.0 mg/dL (<10) Urine Color Light-yellow (Yellow) Urine Clarity Clear (Clear) Urine pH 5.0 (5.0-9.0) Urine Specific [place] 1.011 (1.001-1.035) Urine Protein Negative (Negative) Urine Ketones Negative (Negative) Urine Blood Negative /uL (Negative) Urine Nitrite Negative (Negative) Urine Bilirubin Negative (Negative) Urine Urobilinogen Normal mg/dL (Negative) Urine Leukocyte Esterase Negative /uL (Negative) Urine RBC 1 /hpf (0 - 4) Urine Microscopic WBC < 1 /HPF (0-5) Urine Squamous Epithelial Cells Few /hpf (<5) Urine Bacteria None seen /hpf (None Seen) Urine Glucose Normal mg/dL (Normal) Other Laboratory Tests 05/04/25 06:07 05/03/25 10:50 Brief Hx & Hospital Course: This is a 55-year-old female with past medical history of gastritis, presented to the ER with chief complain of epigastric abdominal pain since 1 week. Pain is described as cramp like, has been progressively worse, rating 5/10, worsens with eating food; nonradiating, no relieving factors. She also reported nausea and vomiting yesterday, 2 episodes of vomiting with food contents, no hematemesis. She was unable to put anything down. Patient also reported constipation for last 1 week. Patient reported she had endoscopy done 2 years before which revealed gastritis, managed with pantoprazole. She denies recent travel, eating from food truck, raw seafood consumption. Patient denied any fever, dysuria, chest pain or shortness of breath. PMHx: Gastritis PSHx: 2 sections Family history: Diabetes mellitus (mother) Social history: Denies smoking, alcohol, recreational drug use. Lives in house with sister. Full code. Home medication: No medication use at home Allergic history: No known allergies Brief hospital course: Patient came to the hospital due to abdominal pain, nausea, vomiting. Patient had acute gastritis, acute gastroenteritis, intractable abdominal pain , vomiting possibly due to acute gastroenteritis. CT scan showed mild diverticulitis without diverticulosis, fibroid uterus. Supportive management with IV fluids, [place], pain management, docusate sodium, Protonix, MiraLax, sucralfate given. Patient was started on liquid diet and advanced as tolerated. GI consult was not placed due to the med of symptoms. Patient had chest pain which was pressure-like for which we ordered echo, consulted Cardiology, ordered BNP which was normal, tropes were negative, EKG showed bradycardia with no ST changes. Patient is obese with BMI of 3 6.6 patient was counseled on lifestyle and diet changes for greater than 18 minutes. DVT prophylaxis was given with Lovenox, GI prophylaxis was given with Protonix. Patient is stable for discharge and does not complain of chest pain or abdominal pain. Patient understand her discharge plan and agreed to follow-up with discharge Clinic in 1 week. General: Patient alert and oriented in person, place and time. Patient following commands. HEENT: Normocephalic, atraumatic, dry mucous membranes Respiratory/pulmonary: Clear lungs bilaterally, vesicular murmurs present in almost all lung cloud, no associated crackles or wheezes. Cardiovascular: Normal heart sounds S1 and S2 with no associated murmurs, Pressure-like chest pain Abdomen: Abdominal tenderness on palpation of epigastric area. No guarding rigidity, no palpable masses. Extremities: There is no peripheral edema present at the lower extremities. Peripheral Pulses: 3+ Radial (R). 3+ Radial (L). 3+ Dorsalis pedis (R). 3+ Dorsalis pedis(L) Skin: No rashes or pruritus, there is no sacral edema present at this time. Neurological: Intact cranial nerves with no focal neurologic deficits Patient is to take Protonix b.i.d.. Operations or Procedures ORDERING PHYSICIAN: KASSANDRA WILHELM MD PROCEDURE(s): ABPLIV - CT AB PEL WITH IV CON ONLY REASON: intractable abdominal pain ORDER NUMBER(s): [id number], ACCESSION NUMBER(s): [id number] Exam: CT CT AB PEL WITH IV CON ONLY History: intractable abdominal pain COMPARISON: None Technique: Multidetector spiral CT of the abdomen and pelvis was performed from lung bases to pubic symphysis. Intravenous contrast was administered during this examination. Portal venous imaging was obtained. Axial, coronal and sagittal multiplanar reformats were performed by the technologist on a separate workstation. Radiation Dose : 1. Abdomen/Pelvis: CTDIvol 25.07mGy, DLP 1202.85 mGy*cm. Findings: Lung Bases: No acute or significant lung base finding. Normal heart size. No pleural or pericardial effusion. Liver: The liver is normal in size. No focal lesions. Normal hepatic vascular enhancement. Gallbladder and Biliary Tree: Unremarkable Spleen: Unremarkable Pancreas: The pancreas is normal in appearance without focal lesions or abnormal enhancement. Adrenal Glands: Unremarkable Kidneys: Unremarkable. Bladder: Unremarkable Bowel: No acute bowel abnormality. Mild sigmoid diverticulosis. No diverticulitis. Normal appendix. Ascites: Absent Lymphadenopathy: No lymphadenopathy. Abdominal Wall and Mesentery: Unremarkable. Vasculature: The visualized abdominal aorta is normal in size and caliber. Abdominal and pelvic vessels demonstrate normal enhancement. Pelvic Organs: Fibroid uterus. Musculoskeletal: No aggressive focal bony lesions, acute fractures or dislocation. IMPRESSION: Fibroid uterus Mild sigmoid diverticulosis. No diverticulitis Radiation optimization: All CT scans at this facility use at least one of these dose optimization techniques: automated exposure control mA and/or kV adjustment per patient size (includes targeted exams where dose is matched to clinical indication) or iterative reconstruction. ATED BY: TERRA LAZARO MD DICTATED DATE/TIME: 05/02/251704 SIGNED BY: TERRA LAZARO MD SIGNED DATE/TIME: 05/02/251704 ORDERING PHYSICIAN: GUILHERME DIAMOND PROCEDURE(s): CXR1 - CHEST XRAY 1 VIEW REASON: chest pain ORDER NUMBER(s): [id number], ACCESSION NUMBER(s): [id number] CHEST RADIOGRAPH Indication: chest pain Technique: Single frontal view of the chest was obtained Comparison: None FINDINGS: Lines and Tubes: None Lungs: No focal consolidation. Pleura: No effusion. No pneumothorax. Cardiomediastinal contours: Unremarkable Bones: No acute osseous abnormality. IMPRESSION: 1. No acute cardiopulmonary disease. ATED BY: ANKIT VICENTE Jr., DO DICTATED DATE/TIME: 05/04/251408 SIGNED BY: ANKIT VICENTE Jr., DO SIGNED DATE/TIME: 05/04/251408 Condition at Discharge: Stable Final Diagnosis/Problems List Acute gastroenteritis Acute gastritis Intractable abdominal pain, vomiting due to above Diverticulosis without diverticulitis Ruled out acute pancreatitis Ruled out acute cholecystitis slow transit Constipation Obesity class 2 Discharge Disposition: Home Discharge Instruct/Medications Diet: Regular Activity: No Restrictions, As Tolerated Follow Up/Referral: Follow-up with discharge Clinic in 1 week Medications: Take Protonix b.i.d.. Scheduled Omeprazole (Gnp Omeprazole), 20 MG PO DAILY, (Reported) Pantoprazole Sodium Sesquihydr (Pantoprazole Sodium), 40 MG PO BID Sertraline HCl (Sertraline HCl), 50 MG PO DAILY, (Reported) Discharge Statement: "Patient was advised to return to the ER or call 911 if any headaches, dizziness, shortness of breath, chest pain, abdominal pain, bleeding, fevers, or worsening of medical condition. Patient was counseled about treatment plan, medications, possible side effects, patientverbalized understanding. All questions were answered to the best of my ability. This discharge took greater then 30 minutes in planning, reviewing documentation, counseling the patient, and discussing with other team members." ASSESSMENT ASSESSMENT Assessment Acute gastroenteritis Date of Service: May 04, 2025 Billing Provider: LITZY HIGGINS MD Common Visit Codes: 59360-DME/OBS DISCH DAY >30min GUILHERME DIAMOND RESIDENT May 04, 2025 18:29 LITZY HIGGINS MD May 04, 2025 22:27
--- NOTE | 2025-05-05 08:57 | ECG ---
[facility] Test Date: 2025-05-04 Test Time: 10:37:51 Pat Name: MIKE THOMAS Department: Respiratoy Room: [address] [place] [address] 3 Gender: F Manager Administration: ANTONIO : 1970 Requested By: GUILHERME DIAMOND Order Number: [id number] Reading MD: Jeferson Lockett Measurements Intervals [place] Rate: 50 P: 11 [place]: 154 QRS: 26 QRSD: 89 T: 24 QT: 428 QTc: 391 Interpretive Statements Sinus rhythm Electronically Signed On 05-05-2025 17:20:47 PST by Jeferson Lockett Please click the below link to view image of tracing.
--- NOTE | 2025-05-05 12:04 | DVHSR ---
APPROVED REPORT EXAM: Two-dimensional and M-mode echocardiogram with Doppler and color Doppler. Blood Pressure: 143/87 mmHg INDICATION R/O structural heart disease RISK FACTORS Obesity: Height: 5'4", Weight: 213 DIMENSIONS LVDd 5.2 (3.8-5.7cm) LA (2D) 4.4 (1.9-4.0cm) Aortic Root 3.4 (2.0-3.7cm) LVDs 3.6 (2.5-4.0cm) LA (MM) (1.9-4.0cm) Aortic Cusp Exc 1.7 (1.5-2.0cm) EF (%) 60.0 (55-70%) Rt. Atrium 4.4 (1.9-4.0cm) Asc. Aorta cm IVSd 1.0 (0.7-1.1cm) RV (D) (1.8-2.4cm) PWd 0.9 (0.7-1.1cm) Mitral Valve Mitral Mitral Stenosis E wave 0.84m/s MV Mean GR. mmHg A wave 0.74m/s MV Peak GR. mmHg E/A ratio 1.1 2D MVA cm2 DECEL Time 231ms PRESS 1/2 Time ms Aortic Valve Aortic Valve Aortic Stenosis V1 0.98m/s AO Mean GR. 4mmHg V2 1.38m/s AO Peak GR. 8mmHg LVOT Diameter 1.9 (1.8-2.4cm) Doppler EFRAÍN 2.01cm2 Pulmonic Valve V2 1.10m/s Tricuspid Valve TR Velocity 2.44m/s RVSP 27mmHg Conclusion lvef 65% normal rv function left atrium enlarged mild no severe valve abnormalities noted
== END 2025-05-04 18:23 | disposition home or self-care (01) | DRG 241 ==
LOC: ER 14:27 → OVERFLOW 20:57 → EAST 05-03 01:27 → TELE-EAST 05-03 18:30
PROVIDERS: ADMIT Internal Medicine; ATTEND Internal Medicine
DX: K29.00 Acute gastritis without bleeding (principal); D25.9 Leiomyoma of uterus, unspecified; E66.812 Obesity, class 2; K52.9 Noninfective gastroenteritis and colitis, unspecified; Z68.37 Body mass index [BMI] 37.0-37.9, adult; K57.30 Diverticulosis of large intestine without perforation or abscess without bleeding; K59.01 Slow transit constipation; F41.9 Anxiety disorder, unspecified; Z83.3 Family history of diabetes mellitus; Z98.891 History of uterine scar from previous surgery
CPT/HCPCS: 36415; 71045; 74177; 80048; 80053; 80307; 80320; 81001; 82306; 82607; 82746; 83036; 83690; 83735; 83880; 84443; 84484; 85025; 93005; 93306; 96365; 96375; 99291; G0378; J2405; J2470

== ENCOUNTER 2025-05-06 17:09 | Emergency (ER) | payer MEDICAID ==
[~2025-05-06] VITALS: Ht 162.6 cm; Wt 97.2 kg
[~2025-05-06 17:09] MED LIST: OMEP20TA PO; PANT40T PO; SERT-289 PO
--- NOTE | 2025-05-06 18:31 | ED.PDOC ---
GI ASSESSMENT HPI Comments 55 year old female with PMHx hemorrhoids presents to the ED with a chief complaint of abdominal pain onset 4 days. Patient states she has been experiencing diffused abdominal pain as well as constipation and nausea for the past 4 days. She was discharged from [facility] on 05/04/25, was admitted to to gastroenteritis, states she was not able to have bowel movement prior to discharge, was not prescribed medication. She has experienced hemorrhoids in the past, pain is similar. She began experiencing rectal discomfort since this morning. Denies fever, chills, blood in stool, melena, rectal bleeding, vomiting, chest pain, shortness of breath, dizziness. No other symptoms or modifying factors present at this time. Chief Complaint: Abdominal Pain Time Seen by MD: 18:15 Reviewed Notes: Nurses Notes, Medications, Allergies Allergies: Coded Allergies: NO KNOWN ALLERGIES (Unverified , 05/02/25) Home Meds Active Scripts Pantoprazole Sodium Sesquihydr (Pantoprazole Sodium) 40 Mg Tab, 40 MG PO BID for 30 Days, #60 TAB Prov:ELKIN LIZAMA RESIDENT 05/04/25 Reported Medications Omeprazole (Gnp Omeprazole) 20 Mg Tab, 20 MG PO DAILY, TAB 05/03/25 Sertraline HCl (Sertraline HCl) 50 Mg Tab, 50 MG PO DAILY, TAB 05/03/25 Information Source: Patient Mode of Arrival: Ambulatory Timing: Days Duration: Since onset Prehospital treatment: None Quality: Sharp Vomitus: None Severity: Moderate Recent: None Recent Hx of: None Pain Location: Diffuse Modifying Factors: Nothing Associated sign and symptoms: Nausea, Constipation, Abdominal Pain Past Medical History PAST MEDICAL HISTORY: Denies Surgical History: [employer]UDENT [employer]OR History: 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 Family History Family History: Reviewed,noncontributory to illness, Unknown Social History Smoker: Non-Smoker Alcohol: Denies ETOH Use Drugs: Denies Drug Use Lives In: Home Constitutional: denies: chills, diaphoresis, fatigue, fever, malaise, sweats, weakness, others EENTM: denies: blurred vision, double vision, ear bleeding, ear discharge, ear drainage, ear pain, ear ringing, eye pain, eye redness, hearing loss, mouth pain, mouth swelling, nasal discharge, nose bleeding, nose congestion, nose pain, photophobia, tearing, throat pain, throat swelling, voice changes, others Respiratory: denies: cough, hemoptysis, orthopnea, SOB at rest, shortness of b reath, SOB with excertion, stridor, wheezing, others Cardiovascular: denies: chest pain, dizzy spells, diaphoresis, Dyspnea on exertion, edema, irregular heart beat, left arm pain, lightheadedness, palpitations, PND, syncope, others Gastrointestinal: reports: abdominal pain, constipated, nausea; denies: abdomen distended, blood streaked bowels, diarrhea, dysphagia, difficulty swallowing, hematemesis, melena, poor appetite, poor fluid intake, rectal bleeding, rectal pain, vomiting, others Genitourinary: denies: abnormal vagina bleeding, burning, dyspareunia, dysuria, flank pain, frequency, hematuria, incontinence, pain, , vagina discharge, urgency, others Neurological: denies: dizziness, fainting, headache, left sided numbness, left sided weakness, numbness, paresthesia, pre-existing deficit, right sided numbness, right sided weakness, seizure, speech problems, tingling, tremors, weakness, others Musculoskeletal: denies: back pain, gout, joint pain, joint swelling, muscle pain, muscle stiffness, neck pain, others Integumetry: denies: bruises, change in color, change in hair/nails, dryness, laceration, lesions, lumps, rash, wounds, others Allergic/Immunocompromised: denies: Difficulty Healing, Frequent Infections, Hives, Itching, others Hematologic/Lymphatic: denies: anemia, blood clots, easy bleeding, easy bruising, swollen glands, others Endocrine: denies: excessive hunger, excessive sweating, excessive thirst, excessive urination, flushing, intolerance to cold, intolerance to heat, unexplained weight gain, unexplained weight loss, others Psychiatric: denies: anxiety, bipolar disorder, depression, hopeless, panic disorder, schizophrenia, sleepless, suicidal, others All Other Systems: Reviewed and Negative Physical Exam General Appearance: Normal HEENT: Normal ENT Inspection, Pharynx Normal, TMs Normal Neck: Full Range of Motion, Non-Tender, Normal, Normal Inspection Respiratory: Chest Non-Tender, Lungs Clear, No Accessory Muscle Use, No Respiratory Distress, Normal Breath Sounds Cardiovascular: No Edema, No JVD, No Murmur, No Gallop, Normal Peripheral Pulses, Regular Rate/Rhythm Breast Exam: Deferred Gastrointestinal: No Organomegaly, Normal Bowel Sounds, RLQ (tenderness), Tenderness (diffused tenerness to RLQ) Genitalia: Deferred Pelvic: Deferred Rectal: Deferred Extremities: No calf tenderness, Normal capillary refill, Normal inspection, Normal range of motion, Non-tender, No pedal edema Musculoskeletal : Apperance: Normal Neurologic: Alert, data deliverables manager II-XII nml as Tested, No Motor Deficits, Normal Affect, Normal Mood, No Sensory Deficits Cerebellar Function: Normal Reflexes: Normal Skin: Dry, Normal Color, Warm Lymphatic: No Adenopathy Was a procedure done? Was a procedure done?: No GI differential Dx Differential Diagnosis: Bowel Obstruction, Constipation, Gastritis/PUD, Gastroenteritis, GI hemorrhage X-Ray, Labs, Meds, VS Vital Signs Date Time Temp Pulse Resp B/P (MAP) Pulse Ox O2 Delivery O2 Flow Rate FiO2 05/06/25 17:11 97.3 87 15 150/99 99 97.3 X-Ray, Labs, Meds, VS Comment Imaging was reviewed by this provider, there is no obvious pathological or acute disease process. Pending radiology review Labs were reviewed by this provider, no abnormalities Vital signs reviewed by this provider, clinically stable Time of 1ST Reevaluation: 18:45 Reevaluation 1ST: Unchanged Patient Education/Counseling: Diagnosis, Treatment, Prognosis, Need For Follow Up (Follow up with PCP next available appointment. Return to emergency department if symptoms worsen.) Family Education/Counseling: No Family Present SEPSIS Sepsis Screen Date sepsis recognized/suspect: May 06, 2025 Time Sepsis recognized/suspect: 1713 Recent Procedure: No On Antibiotic Therapy: No Respiratory Rate >20: No Heart Rate >90: No Temp<36 C (96.8 F) or >38.3 C: No SBP <90 or MAP <65 mmHG: No New Acute Mental Status Change: No Is the patient on CPAP, BIPAP,: No Physician Orders Kub Abdomen Single View (05/06/25 18:31) Vital Signs Date Time Temp Pulse Resp B/P (MAP) Pulse Ox O2 Delivery O2 Flow Rate FiO2 05/06/25 17:11 97.3 87 15 150/99 99 97.3 Departure 1 Departure Time of Disposition: 20:17 Impression: Primary Impression: Constipation Qualified Codes: K59. - Slow transit constipation Disposition: HOME / SELF CARE / HOMELESS Condition: Stable e-Prescriptions Lactulose (Lactulose) 10 Gm/15 Ml Orin 10 GM PO DAILY PRN, #200 ML Prov: VALDEMAR ARREDONDO 05/06/25 Discharged With: Self Critical Care Note Critical Care Time?: No Stability Stability form required: No Heart Score Heart Score: Heart Score Response (Comments) Value History N/A 0 EKG N/A 0 Age N/A 0 Risk Factors N/A 0 Troponin N/A 0 Total 0 I personally scribed for VALDEMAR ARREDONDO ([email or web address]) on 05/06/25 at 18:31. Electronically submitted by Marianne Haywood ([email or web address]). VALDEMAR ARREDONDO May 06, 2025 18:31
--- NOTE | 2025-05-06 20:00 | DVH ---
Date: 05/06/2025 07:01 PM Examination: XY KUB ABDOMEN SINGLE VIEW History: abd pain Comparison: None TECHNIQUE: Frontal views of the abdomen was obtained. FINDINGS: Bowel gas pattern is unremarkable. Stool throughout the colon may represent constipation. Correlate with clinical setting The lung bases are unremarkable. No acute osseous abnormality identified. IMPRESSION: 1. Nonobstructive bowel gas pattern. 2. Stool scattered throughout the colon correlate for possible constipation.
[2025-05-06] MEDS ORDERED: LACT10SO3 PO (20:19)
[2025-05-06 21:01] VITALS: BP 144/81; TEMP 98.7
[2025-05-06 21:15] VITALS: PULSE 61; RESP 12; O2SAT 95
== END 2025-05-06 21:18 | disposition home or self-care (01) ==
LOC: ER 17:09
DX: K52.9 Noninfective gastroenteritis and colitis, unspecified (principal); Z79.899 Other long term (current) drug therapy; Z87.19 Personal history of other diseases of the digestive system
CPT/HCPCS: 74018